=== PATIENT | male | born 1990 | race Native Hawaiian/Other Pacific Islander ===

== ENCOUNTER 2018-10-06 17:47 | Emergency (ER) | payer OTHER ==
[~2018-10-06] VITALS: Ht 170.2 cm; Wt 70.3 kg
[2018-10-06 19:50] VITALS: BP 118/77; TEMP 98.1
== END 2018-10-06 19:57 | disposition home or self-care (01) ==
LOC: ED 17:47
DX: T15.01XA Foreign body in cornea, right eye, initial encounter (principal); W20.8XXA Other cause of strike by thrown, projected or falling object, initial encounter
CPT/HCPCS: 99281